=== PATIENT | female | born 1985 | race Caucasian/White ===

== ENCOUNTER → 2017-04-02 | Outpatient (CLI) | payer OTHER | END | disposition home or self-care (01) | LOC: RADMRIMAIN 18:44 | PROVIDERS: ATTEND Family Medicine | DX: Z53.9 Procedure and treatment not carried out, unspecified reason (principal) ==

== ENCOUNTER → 2017-07-01 | Outpatient (CLI) | payer OTHER ==
[2017-07-01 09:56] LABS: Non-African American GFR(MDRD) >60 (>60 ml/min/1.73 sqM)
== END | disposition home or self-care (01) ==
LOC: LABWHC1 09:15
PROVIDERS: ATTEND Family Medicine
DX: R51 Headache (principal)
CPT/HCPCS: 36415; 82565

== ENCOUNTER → 2017-07-03 | Outpatient (CLI) | payer OTHER | END | disposition home or self-care (01) | LOC: RADMRIMAIN 19:47 | PROVIDERS: ATTEND Family Medicine | DX: Z53.9 Procedure and treatment not carried out, unspecified reason (principal) ==

== ENCOUNTER → 2017-09-03 | Outpatient (CLI) | payer OTHER ==
[2017-09-03 18:23] LABS: T4, Free (Free Thyroxine) 0.8 ng/dL (0.78-2.19)
--- NOTE | 2017-09-03 20:00 | US ---
EXAMINATION TYPE: US transvaginal DATE OF EXAM: 09/03/2017 COMPARISON: NONE CLINICAL HISTORY: Pelvic Pain R10.2, Menorrhagia N92.1. Irregular menses, pelvic pain, 2 c-sections TECHNIQUE: Transvaginal (TV) Date of LMP: 08/27/17 EXAM MEASUREMENTS: Uterus: 9.0 x 4.6 x 5.5 cm Endometrial Stripe: 0.8 cm Right Ovary: 3.1 x 2.6 x 1.9 cm Left Ovary: 4.0 x 3.2 x 3.5 cm 1. Uterus: Anteverted Heterogeneous in appearance. Nabothian cysts noted. Hypoechoic area anterior body, possibly indenting endometrium = 1.0 x 0.8 x 0.8cm 2. Endometrium: appears wnl 3. Right Ovary: follicles noted 4. Left Ovary: cystic area left ovary = 3.3 x 2.6 x 2.8cm 5. Bilateral Adnexa: wnl 6. Posterior cul-de-sac: wnl IMPRESSION: There is a dominant 3.3 x 2.6 cm left ovarian cyst. No adnexal solid mass or free fluid.
== END | disposition home or self-care (01) ==
LOC: RADUSWWP 16:27
PROVIDERS: ATTEND Obstetrics & Gynecology
DX: N83.202 Unspecified ovarian cyst, left side (principal)
CPT/HCPCS: 36415; 76830; 84439; 84443

== ENCOUNTER → 2017-12-04 | Outpatient (CLI) | payer OTHER ==
--- NOTE | 2017-12-05 22:45 | MR ---
EXAMINATION TYPE: MR brain wo con DATE OF EXAM: 12/04/2017 COMPARISON: Prior MRI brain May 08, 2015. HISTORY: Follow up for headaches and arachnoid cyst, per patient and order. TECHNIQUE: Multiplanar, multisequence imaging of the brain and brainstem is performed without IV cont rast. FINDINGS: Diffusion weighted images demonstrate no evidence of a recent infarct or other diffusion abnormality. There is no extraaxial fluid collection or significant white matter signal abnormality. The ventricu lar system and cisternal spaces are normal in size and appearance. The brain volume is age appropria te. There is persistent fluid collection in the posterior aspect of posterior fossa causing mass effe ct on posterior aspect of cerebellum could reflect arachnoid cyst on axial image 11 unchanged from pr ior study. Midline structures demonstrate normal morphology. The craniocervical junction appears within normal limits. Normal vascular flow voids are present. The visualized sinuses are clear and the globes are i ntact. IMPRESSION: Stable probable posterior fossa arachnoid cyst. No new suspicious findings identified.
== END | disposition home or self-care (01) ==
LOC: RADMRIMAIN 19:53
PROVIDERS: ATTEND Family Medicine
DX: R51 Headache (principal)
CPT/HCPCS: 70551

== ENCOUNTER → 2018-06-07 | Outpatient (CLI) | payer OTHER ==
--- NOTE | 2018-06-07 15:25 | US ---
EXAMINATION TYPE: US pelvic complete DATE OF EXAM: 06/07/2018 COMPARISON: US CLINICAL HISTORY: N92.0 menorrhagia x 1 year; ; uterine fibroid TECHNIQUE: . Transabdominal sonographic images of the pelvis were acquired. Date of LMP: 05/31/2018 EXAM MEASUREMENTS: Uterus: 9.2 x 5.5 x 3.6 cm Endometrial Stripe: 0.8 cm Right Ovary: 3.2 x 2.1 x 2.3 cm Left Ovary: 3.0 x 2.9 x 2.0 cm 1. Uterus: Anteverted; mid oval, hypoechoic uterine fibroid seen at myometrial and endometrial borde r = 1.2 x 1.4 x 1.5cm 2. Endometrium: thickness is wnl for Day 22 LMP 3. Right Ovary: small follicles seen 4. Left Ovary: small follicles seen with largest size = 0.9 x 0.7 x 0.5cm Color flow imaging was demonstrated in bilateral ovary. 5. Bilateral Adnexa: wnl 6. Posterior cul-de-sac: wnl IMPRESSION: 1. Leiomyomatous change noted. 2. Small ovarian follicles as noted above.
--- NOTE | 2018-06-08 08:31 | USB ---
Reason for exam: clinical finding. Indicated problem(s): lump or thickening in the right breast. Physical Findings: Nurse Summary: Patient complains of right breast lump x 1 month (nurse marissa). US Breast RT Right complete breast ultrasound includes all four quadrants, the retroareolar region and axilla. Finding demonstrates no cystic or solid lesion seen. These results were verbally communicated with the patient and result sheet given to the patient on 06/07/18. ASSESSMENT: Negative, BI-RAD 1 RECOMMENDATION: Routine screening mammogram of both breasts at age 39. Manage patient on a clinical basis.
== END | disposition home or self-care (01) ==
LOC: RADUSWWP 14:07
PROVIDERS: ATTEND Obstetrics & Gynecology
DX: D25.9 Leiomyoma of uterus, unspecified (principal); N63.10 Unspecified lump in the right breast, unspecified quadrant
CPT/HCPCS: 76856

== ENCOUNTER 2018-08-10 22:00 | Emergency (ER) | payer OTHER ==
--- NOTE | 2018-08-10 23:06 | ED ---
General Adult HPI - General Chief complaint: Shortness of Breath Stated complaint: Fever/sob/chest pain Time Seen by Provider: 08/10/18 22:22 Source: patient, RN notes reviewed Mode of arrival: ambulatory Limitations: no limitations - History of Present Illness Initial comments: Patient is a pleasant 33-year-old female presenting to the emergency department with concerns for cough and left-sided chest discomfort. Symptoms have been present for 4 days. Patient did go to [facility] and had x-ray done. Patient states this was reported as normal and they told her was anxiety. Since that time patient has been coughing. Cough is dry nonproductive. Patient has been having some fevers. Patient did take Tylenol and Motrin prior to arrival today. Patient states her significant other has been diagnosed with pneumonia and has similar symptoms. - Related Data Home Medications Medication Instructions Recorded Confirmed ALPRAZolam [Xanax] 0.5 mg PO Q8HR 12/14/15 12/14/15 Losartan [Cozaar] 25 mg PO DAILY 12/14/15 12/14/15 PARoxetine [Paxil] 20 mg PO DAILY 12/14/15 12/14/15 Previous Rx's Medication Instructions Recorded HYDROcodone/APAP 5-325MG [[place] 1 tab PO Q6HR PRN #10 tab 12/14/15 5-325] Ibuprofen [Motrin] 800 mg PO Q8HR PRN #20 tab 12/14/15 Penicillin V Potassium [Pen Vee K] 500 mg PO QID #40 tab 12/14/15 Azithromycin [Zithromax Z-pack] 250 mg PO DIRECTED #6 tab 08/11/18 Allergies Allergy/AdvReac Type Severity Reaction Status Date / Time latex Allergy Rash/Hives Verified 08/10/18 22:06 sulfamethoxazole Allergy Nausea & Verified 08/10/18 22:06 [From ] Vomiting & Diarrhea trimethoprim [From ] Allergy Nausea & Verified 08/10/18 22:06 Vomiting & Diarrhea Review of Systems ROS Statement: Those systems with pertinent positive or pertinent negative responses have been documented in the HPI. ROS Other: All systems not noted in ROS Statement are negative. Constitutional: Reports: fever, chills Eyes: Denies: eye pain ENT: Denies: ear pain Respiratory: Reports: cough, dyspnea Cardiovascular: Reports: chest pain Endocrine: Denies: fatigue Gastrointestinal: Denies: abdominal pain Genitourinary: Denies: dysuria Musculoskeletal: Denies: back pain Skin: Denies: rash Neurological: Denies: weakness Past Medical History Past Medical History: Seizure Disorder Additional Past Medical History / Comment(s): brain cyst, hernia History of Any Multi-Drug Resistant Organisms: None Reported Past Surgical History: Section, Tonsillectomy Past Psychological History: Anxiety Smoking Status: Current every day smoker Past Alcohol Use History: None Reported Past Drug Use History: None Reported General Exam Limitations: no limitations General appearance: alert, in no apparent distress Head exam: Present: atraumatic Eye exam: Present: normal appearance, PERRL ENT exam: Present: normal oropharynx Neck exam: Present: normal inspection Respiratory exam: Present: rhonchi, chest wall tenderness Cardiovascular Exam: Present: tachycardia Expanded Peripheral pulses: 2+: Radial (R), Radial (L), Dorsalis Pedis (R), Dorsalis Pedis (L) GI/Abdominal exam: Present: soft. Absent: tenderness Extremities exam: Present: normal inspection. Absent: pedal edema, calf tenderness Back exam: Present: normal inspection Neurological exam: Present: alert Psychiatric exam: Present: normal affect, normal mood Skin exam: Present: normal color Course Vital Signs 08/10/18 08/10/18 22:03 22:16 Temperature 99.1 F Pulse Rate 155 H 112 H Respiratory 32 H 20 Rate Blood Pressure 130/73 137/79 O2 Sat by Pulse 97 96 Oximetry - Reevaluation(s) Reevaluation #1: 08/11/18 00:27 Patient reevaluated and updated. Patient requesting discharge home. Patient will likely be discharged if computed tomography scan negative for pulmonary embolism. Heart rate is 89. EKG Findings - EKG Comments: EKG Findings:: Sinus tachycardia 110. RI 128. QRS 84. QT 326. QTc 441. Normal axis. Normal QRS. No acute ST change. Medical Decision Making - Lab Data Result diagrams: 08/10/18 23:17 08/10/18 23:17 Lab Results 08/10/18 08/10/18 08/10/18 Range/Units 23:17 23:17 23:17 WBC 8.1 (3.8-10.6) k/uL RBC 4.79 (3.80-5.40) m/uL Hgb 14.8 (11.4-16.0) gm/dL Hct 43.6 (34.0-46.0) % MCV 90.9 (80.0-100.0) fL MCH 30.9 (25.0-35.0) pg MCHC 34.0 (31.0-37.0) g/dL RDW 12.3 (11.5-15.5) % Plt Count 162 (150-450) k/uL Neutrophils % 84 % Lymphocytes % 8 % Monocytes % 5 % Eosinophils % 1 % Basophils % 0 % Neutrophils # 6.8 (1.3-7.7) k/uL Lymphocytes # 0.7 L (1.0-4.8) k/uL Monocytes # 0.4 (0-1.0) k/uL Eosinophils # 0.1 (0-0.7) k/uL Basophils # 0.0 (0-0.2) k/uL PT 10.7 (9.0-12.0) sec INR 1.0 (<1.2) APTT 27.3 (22.0-30.0) sec D-Dimer 0.95 H (<0.60) mg/L FEU Sodium 139 (137-145) mmol/L Potassium 3.7 (3.5-5.1) mmol/L Chloride 109 H (98-107) mmol/L Carbon Dioxide 21 L (22-30) mmol/L Anion Gap 9 mmol/L BUN 11 (7-17) mg/dL Creatinine 0.63 (0.52-1.04) mg/dL Est GFR (CKD-EPI)AfAm >90 (>60 ml/min/1.73 sqM) Est GFR (CKD-EPI)NonAf >90 (>60 ml/min/1.73 sqM) Glucose 114 H (74-99) mg/dL Plasma Lactic Acid Agustin (0.7-2.0) mmol/L Calcium 9.0 (8.4-10.2) mg/dL Total Bilirubin 1.0 (0.2-1.3) mg/dL AST 108 H (14-36) U/L ALT 97 H (9-52) U/L Alkaline Phosphatase 97 (38-126) U/L Total Creatine Kinase (30-135) U/L CK-MB (CK-2) (0.0-2.4) ng/mL CK-MB (CK-2) Rel Index Troponin I (0.000-0.034) ng/mL Total Protein 6.9 (6.3-8.2) g/dL Albumin 4.0 (3.5-5.0) g/dL Urine Color Urine Appearance (Clear) Urine pH (5.0-8.0) Ur Specific [place] (1.001-1.035) Urine Protein (Negative) Urine Glucose (UA) (Negative) Urine Ketones (Negative) Urine Blood (Negative) Urine Nitrite (Negative) Urine Bilirubin (Negative) Urine Urobilinogen (<2.0) mg/dL Ur Leukocyte Esterase (Negative) Urine RBC (0-5) /hpf Urine WBC (0-5) /hpf Ur Squamous Epith Cells (0-4) /hpf Calcium Oxalate Crystal (None) /hpf Amorphous Sediment (None) /hpf Urine Bacteria (None) /hpf Hyaline Casts (0-2) /lpf Urine Mucus (None) /hpf Urine Yeast (Budding) (None) /hpf 08/10/18 08/10/18 08/10/18 Range/Units 23:17 23:17 23:17 WBC (3.8-10.6) k/uL RBC (3.80-5.40) m/uL Hgb (11.4-16.0) gm/dL Hct (34.0-46.0) % MCV (80.0-100.0) fL MCH (25.0-35.0) pg MCHC (31.0-37.0) g/dL RDW (11.5-15.5) % Plt Count (150-450) k/uL Neutrophils % % Lymphocytes % % Monocytes % % Eosinophils % % Basophils % % Neutrophils # (1.3-7.7) k/uL Lymphocytes # (1.0-4.8) k/uL Monocytes # (0-1.0) k/uL Eosinophils # (0-0.7) k/uL Basophils # (0-0.2) k/uL PT (9.0-12.0) sec INR (<1.2) APTT (22.0-30.0) sec D-Dimer (<0.60) mg/L FEU Sodium (137-145) mmol/L Potassium (3.5-5.1) mmol/L Chloride (98-107) mmol/L Carbon Dioxide (22-30) mmol/L Anion Gap mmol/L BUN (7-17) mg/dL Creatinine (0.52-1.04) mg/dL Est GFR (CKD-EPI)AfAm (>60 ml/min/1.73 sqM) Est GFR (CKD-EPI)NonAf (>60 ml/min/1.73 sqM) Glucose (74-99) mg/dL Plasma Lactic Acid Agustin 1.1 (0.7-2.0) mmol/L Calcium (8.4-10.2) mg/dL Total Bilirubin (0.2-1.3) mg/dL AST (14-36) U/L ALT (9-52) U/L Alkaline Phosphatase (38-126) U/L Total Creatine Kinase 155 H (30-135) U/L CK-MB (CK-2) 0.9 (0.0-2.4) ng/mL CK-MB (CK-2) Rel Index 0.6 Troponin I <0.012 (0.000-0.034) ng/mL Total Protein (6.3-8.2) g/dL Albumin (3.5-5.0) g/dL Urine Color Dark Brown Urine Appearance Cloudy H (Clear) Urine pH 6.5 (5.0-8.0) Ur Specific [place] 1.033 (1.001-1.035) Urine Protein 2+ H (Negative) Urine Glucose (UA) Trace H (Negative) Urine Ketones Negative (Negative) Urine Blood Large H (Negative) Urine Nitrite Negative (Negative) Urine Bilirubin 1+ H (Negative) Urine Urobilinogen >12.0 (<2.0) mg/dL Ur Leukocyte Esterase Trace H (Negative) Urine RBC 97 H (0-5) /hpf Urine WBC 5 (0-5) /hpf Ur Squamous Epith Cells 20 H (0-4) /hpf Calcium Oxalate Crystal Few H (None) /hpf Amorphous Sediment Rare H (None) /hpf Urine Bacteria Rare H (None) /hpf Hyaline Casts 1 (0-2) /lpf Urine Mucus Few H (None) /hpf Urine Yeast (Budding) Rare H (None) /hpf - Radiology Data Radiology results: image reviewed (Chest x-ray shows left lung consolidation.) Disposition Clinical Impression: Pneumonia Disposition: HOME SELF-CARE Condition: Stable Instructions: Pneumonia (ED) Additional Instructions: Please follow-up with primary care physician in the next day or 2 for recheck. Return for uncontrolled fever, difficulty breathing, increased pain, change or worsening symptoms or other concerns. Prescriptions: Azithromycin [Zithromax Z-pack] 250 mg PO DIRECTED #6 tab Is patient prescribed a controlled substance at d/c from ED?: No Referrals: Héctor Darnell MD [Primary Care Provider] - 1-2 days
[2018-08-10 23:47] LABS: Basophils % (A) 0 %; Eosinophils # (A) 0.1 k/uL (0-0.7); Eosinophils % (A) 1 %; HCT 43.6 % (34.0-46.0); HGB 14.8 gm/dL (11.4-16.0); Lymphocytes # (A) 0.7 k/uL (1.0-4.8); Lymphocytes % (A) 8 %; MCH 30.9 pg (25.0-35.0); MCV 90.9 fL (80.0-100.0); Mean Platelet Volume 7.1; Monocytes # (A) 0.4 k/uL (0-1.0); Monocytes % (A) 5 %; Neutrophils # (A) 6.8 k/uL (1.3-7.7); Neutrophils % (A) 84 %; Platelet Count 162 k/uL (150-450); RBC 4.79 m/uL (3.80-5.40); RDW 12.3 % (11.5-15.5); WBC 8.1 k/uL (3.8-10.6)
[2018-08-10] MEDS: SODIUM CHLORIDE 0.9% 500 ML 500 ML IV SCH (23:50)
[2018-08-10 23:57] LABS: Partial Thromboplastin Time 27.3 sec (22.0-30.0); Prothrombin Time 10.7 sec (9.0-12.0)
[2018-08-10 23:58] LABS: ALT 97 U/L (9-52); AST 108 U/L (14-36); Alkaline Phosphatase 97 U/L (38-126); Anion Gap 9 mmol/L; Blood Urea Nitrogen 11 mg/dL (7-17); Carbon Dioxide 21 mmol/L (22-30); Chloride 109 mmol/L (98-107); Glucose 114 mg/dL (74-99); Potassium 3.7 mmol/L (3.5-5.1); Sodium 139 mmol/L (137-145); Total Protein 6.9 g/dL (6.3-8.2)
[2018-08-11 00:02] LABS: Creatine Kinase 155 U/L (30-135)
[2018-08-11 00:03] LABS: Amorphous Sediment,Urine Rare /hpf; Appearance,Urine Cloudy (Clear); Bacteria,Urine Rare /hpf; Bilirubin,Urine 1+ (Negative); Blood,Urine Large (Negative); Budding Yeast,Urine Rare /hpf; Calcium Oxalate Crystals,Urine Few /hpf; Color,Urine Dark Brown; Glucose,Urine (UA) Trace (Negative); Hyaline Casts,Urine 1 /lpf (0-2); Ketones,Urine Negative (Negative); Leukocyte Esterase,Urine Trace (Negative); Mucus,Urine Few /hpf; Nitrite,Urine Negative (Negative); PH, Urine 6.5 (5.0-8.0); Protein,Urine 2+ (Negative); RBC,Urine 97 /hpf (0-5); Specific Gravity,Urine 1.033 (1.001-1.035); Squamous Epithelial Cell,Urine 20 /hpf (0-4); Urobilinogen,Urine >12.0 mg/dL (<2.0); WBC,Urine 5 /hpf (0-5)
--- NOTE | 2018-08-11 00:04 | XR ---
EXAMINATION TYPE: XR chest 2V DATE OF EXAM: 08/10/2018 COMPARISON: September 17, 2011 HISTORY: Fever TECHNIQUE: Frontal and lateral views of the chest are obtained. FINDINGS: Heart and mediastinum are normal. There is 8 cm patch of airspace consolidation in the per iphery of the left midlung. The other lung guajardo are clear. This is probably in the left upper lobe. Costophrenic angles are clear. Bony thorax is intact. IMPRESSION: New pneumonic consolidation in the left lung compared to last exam. Normal heart.
[2018-08-11 00:15] LABS: Creatine Kinase MB 0.9 ng/mL (0.0-2.4); Troponin I <0.012 ng/mL (0.000-0.034)
[2018-08-11 00:16] LABS: D-Dimer 0.95 mg/L FEU (<0.60)
[2018-08-11] MEDS ORDERED: cefTRIAXone 2,000 MG in SODIUM CHLORIDE 0.9% 100 ML IVPB ONE (00:30)
--- NOTE | 2018-08-11 01:40 | CT ---
EXAMINATION TYPE: CT angio chest DATE OF EXAM: 08/11/2018 12:50 AM COMPARISON: None HISTORY: cough, r/o PE CT DLP: 656.1 mGycm Automated exposure control for dose reduction was used. CONTRAST: CTA scan of the thorax is performed with IV Contrast, patient injected with 70 mL of Isovue 370, pulm onary embolism protocol. There are 3-D post processed images.. FINDINGS: There is some patchy airspace consolidation in the large area of the anterior left upper lobe and als o extending into the lingula left upper lobe. The other lung guajardo are fairly clear. There is no ple ural effusion. There is some atelectasis in the lingula left upper lobe. Heart size is normal. There is no pericardial effusion. There are a few paratracheal and mediastinal and bronchial lymph nodes th at measure up to 1.5 cm. This is more on the left side. There is normal contrast opacification of the pulmonary arteries. I see no filling defect. Thoracic a hector is intact without evidence of aneurysm or dissection. The bony thorax is intact. IMPRESSION: NO EVIDENCE OF PULMONARY EMBOLISM. LEFT UPPER LOBE AIRSPACE PNEUMONIA. MILD MEDIASTINAL AND BRONCHIAL ADENOPATHY PROBABLY FROM INFLAMMATORY PROCESS.
[2018-08-11 02:11] VITALS: BP 133/80; PULSE 90; RESP 16; TEMP 99
== END 2018-08-11 02:11 | disposition home or self-care (01) ==
LOC: EC 22:00
DX: J18.9 Pneumonia, unspecified organism (principal); F41.9 Anxiety disorder, unspecified; F17.200 Nicotine dependence, unspecified, uncomplicated; Z79.899 Other long term (current) drug therapy; Z91.040 Latex allergy status; Z88.1 Allergy status to other antibiotic agents
CPT/HCPCS: 36415; 93005; 85379; 80053; 82550; 82553; 83605; 84484; 85025; 85610; 85730; 81001; 87040; 87086; 71046; 71275; 99285; 96365; J0696; Q9967

== ENCOUNTER → 2019-05-17 | Outpatient (CLI) | payer OTHER | END | disposition home or self-care (01) | LOC: LABPAT 13:18 | PROVIDERS: ATTEND Obstetrics & Gynecology | DX: Z53.9 Procedure and treatment not carried out, unspecified reason (principal) ==

== ENCOUNTER 2019-05-23 05:52 | Observation (INO) | payer OTHER ==
[2019-05-17 14:48] LABS: African American GFR (CKD) >90 (>60 ml/min/1.73 sqM); Anion Gap 9 mmol/L; Blood Urea Nitrogen 13 mg/dL (7-17); Calcium 9.1 mg/dL (8.4-10.2); Carbon Dioxide 23 mmol/L (22-30); Chloride 106 mmol/L (98-107); Glucose 105 mg/dL (74-99); Sodium 138 mmol/L (137-145)
[2019-05-17 15:00] LABS: Basophils % (A) 0 %; Eosinophils # (A) 0.1 k/uL (0-0.7); Eosinophils % (A) 2 %; HCT 44.5 % (34.0-46.0); HGB 15.8 gm/dL (11.4-16.0); Lymphocytes # (A) 2.3 k/uL (1.0-4.8); Lymphocytes % (A) 26 %; MCH 32.2 pg (25.0-35.0); MCHC 35.5 g/dL (31.0-37.0); MCV 90.6 fL (80.0-100.0); Mean Platelet Volume 6.5; Monocytes # (A) 0.3 k/uL (0-1.0); Monocytes % (A) 4 %; Neutrophils # (A) 5.9 k/uL (1.3-7.7); Neutrophils % (A) 67 %; Platelet Count 213 k/uL (150-450); RBC 4.91 m/uL (3.80-5.40); RDW 12.5 % (11.5-15.5); WBC 8.8 k/uL (3.8-10.6)
[2019-05-17 15:03] LABS: Potassium 4.4 mmol/L (3.5-5.1)
[~2019-05-23 05:52] MED LIST: DEXAMETHASONE SOD PHOSPHATE 10 MG/ML 1 ML VIAL IV ONE; MIDAZOLAM 2 MG/2 ML VIAL IV PRN; fentaNYL (PF) 50 MCG/ML 2 ML AMP IV PRN
[2019-05-23] MEDS: LIDOCAINE 1% 20 ML VIAL (10MG/ML) FOR IV START INTRADERMA PRN ×2 (06:26→06:28)
[2019-05-23] MEDS: LACTATED RINGERS 1,000 ML IV SCH ×2 (06:27→18:56)
[2019-05-23] MEDS ORDERED: DEXAMETHASONE SOD PHOSPHATE 4 MG/ML 1 ML VIAL IVP ONE (06:32)
[2019-05-23] MEDS ORDERED: ONDANSETRON 4 MG/2 ML VIAL IVP ONE (06:33)
[2019-05-23] MEDS ORDERED: MIDAZOLAM PF (FBP) 2 MG/2 ML VIAL IVP ONE (06:42)
--- NOTE | 2019-05-23 06:55 | P.HPOB ---
History of Present Illness H&P Date: 05/23/19 Chief Complaint: Menorrhagia 33 year old presents for total laparoscopic hysterectomy with da hazel and diagnostic cystoscopy. Review of Systems All systems: negative Constitutional: Denies chills, Denies fever Eyes: denies blurred vision, denies pain Ears, nose, mouth and throat: Denies headache, Denies sore throat Cardiovascular: Denies chest pain, Denies shortness of breath Respiratory: Denies cough Gastrointestinal: Denies abdominal pain, Denies diarrhea, Denies nausea, Denies vomiting Genitourinary: Denies dysuria, Denies hematuria Musculoskeletal: Denies myalgias Integumentary: Denies pruritus, Denies rash Neurological: Denies numbness, Denies weakness Psychiatric: Denies anxiety, Denies depression Endocrine: Denies fatigue, Denies weight change Past Medical History Past Medical History: GERD/Reflux, Hyperlipidemia, Hypertension, Seizure Disorder Additional Past Medical History / Comment(s): brain cyst, hernia. LAST SEIZURE 2016-NO LONGER ON SEIZURE MEDS History of Any Multi-Drug Resistant Organisms: None Reported Past Surgical History: Section, Tonsillectomy Additional Past Surgical History / Comment(s): C-SECT-X 2 Past Anesthesia/Blood Transfusion Reactions: No Reported Reaction Smoking Status: Current every day smoker - Past Family History Mother Family Medical History: No Reported History Medications and Allergies Home Medications Medication Instructions Recorded Confirmed Type ALPRAZolam [Xanax] 0.5 mg PO Q8HR PRN 12/14/15 05/17/19 History Losartan [Cozaar] 25 mg PO DAILY 12/14/15 05/17/19 History Atorvastatin [Lipitor] 20 mg PO HS 05/17/19 05/23/19 History Hydrochlorothiazide 12.5 mg PO DAILY 05/17/19 05/23/19 History Ranitidine HCl 300 mg PO HS 05/17/19 05/23/19 History Sertraline [Zoloft] 100 mg PO DAILY 05/17/19 05/23/19 History Allergies Allergy/AdvReac Type Severity Reaction Status Date / Time adhesive tape Allergy Rash/Hives Verified 05/17/19 11:36 latex Allergy Rash/Hives Verified 05/17/19 11:36 sulfamethoxazole Allergy Nausea & Verified 05/17/19 11:36 [From ] Vomiting & Diarrhea trimethoprim [From ] Allergy Nausea & Verified 05/17/19 11:36 Vomiting & Diarrhea Exam Osteopathic Statement: *. No significant issues noted on an osteopathic structural exam other than those noted in the History and Physical/Consult. Vital Signs Temp Pulse Resp BP Pulse Ox 05/23/19 06:11 97.1 F L 108 H 16 140/67 97 Intake and Output 05/22/19 05/22/19 05/23/19 14:59 22:59 06:59 Other: Weight 112.491 kg HEart: RRR Lungs: CTAB Abdomen: soft, nontender Extremeties: neg juliana's Results Result Diagrams: 05/17/19 14:20 05/17/19 14:20 Assessment and Plan (1) Menorrhagia with regular cycle Current Visit: Yes Status: Acute Code(s): N92.0 - EXCESSIVE AND FREQUENT MENSTRUATION WITH REGULAR CYCLE SNOMED Code(s): 109396499 Plan: 1. total laparoscopic hysterectomy using da vinic and diagnostic cystoscopy.
[2019-05-23] MEDS ORDERED: PHENYLEPHRINE-0.9% NACL SYG 1 MG/10 ML SYRINGE ONE (07:09)
[2019-05-23] MEDS ORDERED: HYDROmorphone (PF) 1 MG/ML ONE (07:09)
[2019-05-23] MEDS ORDERED: ROCURONIUM BROMIDE 10 MG/ML 10 ML VIAL IV ONE (07:09)
[2019-05-23] MEDS ORDERED: KETOROLAC 30 MG/ML 1 ML VIAL ONE (07:09)
[2019-05-23] MEDS ORDERED: fentaNYL (PF) 50 MCG/ML 2 ML AMP ONE (07:09)
[2019-05-23] MEDS ORDERED: MIDAZOLAM 2 MG/2 ML VIAL ONE (07:09)
[2019-05-23] MEDS ORDERED: GLYCOPYRROLATE 0.2 MG/ML 2 ML VIAL ONE (07:09)
[2019-05-23] MEDS ORDERED: LIDOCAINE 1% INJ 10MG/ML (20 ML MDV) ONE (07:09)
[2019-05-23] MEDS ORDERED: NEOSTIGMINE 1 MG/ML 10 ML VIAL ONE (07:09)
[2019-05-23] MEDS ORDERED: PROPOFOL 10 MG/ML 20 ML VIAL IV ONE (07:09)
[2019-05-23] MEDS ORDERED: SUCCINYLCHOLINE CHLORIDE 100 MG/5 ML SYR IV ONE (07:09)
[2019-05-23] MEDS ORDERED: BUPIVACAINE (PF) 0.25% 30 ML VIAL SQ ONE (07:53)
[2019-05-23] MEDS ORDERED: ALPRAZolam 0.5 MG TAB PO PRN (09:08)
[2019-05-23] MEDS ORDERED: HYDROmorphone 1 MG/ML 1 ML SYRINGE IVP ONE ×2 (09:10→09:43)
--- NOTE | 2019-05-23 09:10 | P.OP ---
Date of Procedure: 05/23/19 Preoperative Diagnosis: 1. Menorrhagia Postoperative Diagnosis: 1. Menorrhagia Procedure(s) Performed: Total laparoscopic hysterectomy using da Trinh with diagnostic cystoscopy Anesthesia: TERRY Surgeon: Esperanza Hobbs Line Installer Trolley #1: Jewel Lindquist Estimated Blood Loss (ml): 20 IV fluids (ml): 1,000 Urine output (ml): 100 Pathology: other (Uterus and cervix) Condition: stable Disposition: PACU Description of Procedure: Patient taken the operating room where general anesthesia was obtained without difficulty. She is prepped and draped in normal sterile fashion dorsal lithotomy position, legs placed in the Smooth stirrups. Weighted speculum placed in the vagina and the anterior lip the cervix was grasped with single-tooth tenaculum. The uterus sounded to 6 cm and the cervix diameter was 2.5 cm. The appropriate manipulator tip and ring were placed on the Tamanna manipulator. The Tamanna manipulator was then placed in the uterus. Hernandez catheter was also placed. Attention was then turned to the abdomen and gloves were changed. A 5 mm supraumbilical incision was made the scalpel and a 5 mm optical trocar was placed under direct visualization. 10 cm to the right of this and 2 cm down a 5 mm incision was made and 8 mm da Trinh port was placed under direct visualization. Same measurements on the opposite side of the patient's abdomen, the 5 mm incision was made and 8 mm da Trinh port was placed under direct visualization. In the left upper quadrant a 10 mm incision was made and a 10 mm optical trocar was placed under direct visualization. The 5 mm optical trocar was then replaced with the 8 mm da Trinh camera port. The robot was docked on patient's right side. The camera was introduced and then the monopolar curved scissor and [place] bipolar placed under direct visualization. I broke scrub and went to the physician console. The left utero-ovarian ligament was cauterized with the [place] bipolar and cut with monopolar curved scissors. The left round ligament was cauterized with the [place] bipolar and cut with monopolar curved scissors. The posterior leaf of the broad ligament was taken down using the monopolar curved scissors. Anterior leaf of the broad ligament was then taken down using the monopolar curved scissors. The uterine artery was cauterized with the [place] bipolar and cut with monopolar curved scissors. The bladder flap was then started using the monopolar curved scissors. Attention was then turned to the right side of the patient's anatomy and the right utero-ovarian ligament was cauterized with the [place] bipolar and cut with monopolar curved scissors. The right round ligament was cauterized with the [place] bipolar and cut with monopolar curved scissors. Posterior leaf of the broad ligament was taken down using the monopolar curved scissors and the anterior leaf was taken down using the monopolar curved scissors. The uterine artery was cauterized the [place] bipolar cut with monopolar curved scissors. The bladder flap was then finished on this side. Anterior colpotomy was made using the monopolar curved scissors. The rest of the uterus was from the vaginal cuff by following the ring around with the monopolar curved scissors through the uterosacral ligaments back to the anterior portion. Once the uterus and cervix were amputated they were pulled through the vaginal cuff. Hemostasis was assured. The instruments were changed for the Cardier forcep and the ace suture cut. The vaginal cuff was then closed using O stratafix barbed suture in a running fashion. Hemostasis was again assured and the pelvis was irrigated. All instruments were removed from the abdomen and the robot was undocked. I scrubbed back in to perform a cystoscopy. There were jets from both ureteral orifices. The abdominal incisions were closed with 4-0 Vicryl in a subcuticular fashion. Patient tolerated the procedure well, sponge and instrument counts correct 2 and she was taken to recovery room in stable condition condition
[2019-05-23] MEDS ORDERED: SIMETHICONE 80 MG CHEWABLE PO PRN (09:24)
[2019-05-23] MEDS ORDERED: IBUPROFEN 600 MG TAB PO PRN (09:24)
[2019-05-23] MEDS ORDERED: ONDANSETRON 4 MG/2 ML VIAL IVP PRN (09:24)
[2019-05-23] MEDS: HYDROcodone/APAP 7.5-325MG 1 EACH TAB PO PRN ×2 (12:38→18:52)
[2019-05-23] MEDS ORDERED: SIMETHICONE 40 MG/0.6 ML DROPS 2,000 MG/30 ML BOTTLE PO PRN (12:53)
[2019-05-23] MEDS: KETOROLAC 30 MG/ML 1 ML VIAL IVP PRN ×2 (14:16→22:43)
[2019-05-23] MEDS: METOCLOPRAMIDE 5 MG TAB PO SCH ×2 (14:17→18:52)
[2019-05-23] MEDS: SENNOSIDES-DOCUSATE SODIUM 1 EACH TAB PO SCH (20:55)
[2019-05-23] MEDS ORDERED: FAMOTIDINE 20 MG TAB PO SCH (21:00)
[2019-05-23] MEDS ORDERED: ATORVASTATIN 20 MG TAB PO SCH (21:00)
[2019-05-23] MEDS ORDERED: SERTRALINE 100 MG TAB PO SCH (21:00)
[2019-05-23] MEDS ORDERED: SODIUM CHLORIDE 0.9% 500 ML 500 ML IV ONE (22:21)
[2019-05-23 23:30] LABS: HCT 37.8 % (34.0-46.0); MCH 32.6 pg (25.0-35.0); MCHC 33.9 g/dL (31.0-37.0); Mean Platelet Volume 6.6; Platelet Count 185 k/uL (150-450); RBC 3.94 m/uL (3.80-5.40); RDW 12.3 % (11.5-15.5); WBC 12.9 k/uL (3.8-10.6)
[2019-05-23 23:43] LABS: HGB 12.8 gm/dL (11.4-16.0); MCV 95.9 fL (80.0-100.0)
[2019-05-24 00:13] VITALS: TEMP 98.6
[2019-05-24] MEDS: HYDROcodone/APAP 7.5-325MG 1 EACH TAB PO PRN (03:48)
[2019-05-24] MEDS: LACTATED RINGERS 1,000 ML IV SCH (03:52)
[2019-05-24 06:52] VITALS: BMI 35.4
[2019-05-24] MEDS: METOCLOPRAMIDE 5 MG TAB PO SCH (06:53)
[2019-05-24] MEDS: KETOROLAC 30 MG/ML 1 ML VIAL IVP PRN (06:57)
--- NOTE | 2019-05-24 07:36 | P.DS ---
Providers Date of admission: 05/23/19 23:14 Expected date of discharge: 05/24/19 Attending physician: Esperanza Hobbs Primary care physician: Héctor Darnell - Discharge Diagnosis(es) (1) Menorrhagia with regular cycle Current Visit: Yes Status: Resolved (2) History of robot-assisted laparoscopic hysterectomy Current Visit: Yes Status: Acute Hospital Course: Pt presented for TLH with da hazel. She underwent this procedure without complication. Postoperatively she did have some low BPs and dizziness but never tachycardic. Hgb is stable at 12. IV fluid bolus improved those symptoms. She is now ambulating and voiding with minimal difficulty. She is passing flatus and tolerating a reg diet. Pain is controlled and incisions are intact. She will be discharged home POD #1 in stable condition to follow up with me in 3 weeks. Plan - Discharge Summary Discharge Rx Participant: Yes New Discharge Prescriptions: New Ibuprofen [Motrin] 600 mg PO Q6HR PRN #30 tab PRN Reason: Mild Discomfort HYDROcodone/APAP 7.5-325MG [[place] 7.5-325] 1 each PO Q6H PRN #12 tab PRN Reason: SEVERE Pain No Action Losartan [Cozaar] 25 mg PO DAILY ALPRAZolam [Xanax] 0.5 mg PO Q8HR PRN PRN Reason: Anxiety Ranitidine HCl 300 mg PO HS Atorvastatin [Lipitor] 20 mg PO HS Sertraline [Zoloft] 100 mg PO HS Hydrochlorothiazide 12.5 mg PO DAILY Discharge Medication List ALPRAZolam [Xanax] 0.5 mg PO Q8HR PRN 12/14/15 [History] Losartan [Cozaar] 25 mg PO DAILY 12/14/15 [History] Atorvastatin [Lipitor] 20 mg PO HS 05/17/19 [History] Hydrochlorothiazide 12.5 mg PO DAILY 05/17/19 [History] Ranitidine HCl 300 mg PO HS 05/17/19 [History] Sertraline [Zoloft] 100 mg PO HS 05/17/19 [History] HYDROcodone/APAP 7.5-325MG [[place] 7.5-325] 1 each PO Q6H PRN #12 tab 05/24/19 [Rx] Ibuprofen [Motrin] 600 mg PO Q6HR PRN #30 tab 05/24/19 [Rx] Follow up Appointment(s)/Referral(s): Esperanza Hobbs DO [Doctor of Osteopathic Medicine] - 3 Weeks Discharge Disposition: HOME SELF-CARE
[2019-05-24 08:42] LABS: Basophils % (A) 0 %; Eosinophils # (A) 0.1 k/uL (0-0.7); Eosinophils % (A) 1 %; HCT 41.8 % (34.0-46.0); HGB 13.3 gm/dL (11.4-16.0); Lymphocytes # (A) 2.4 k/uL (1.0-4.8); Lymphocytes % (A) 21 %; MCH 31.8 pg (25.0-35.0); MCHC 31.9 g/dL (31.0-37.0); MCV 99.5 fL (80.0-100.0); Mean Platelet Volume 7.5; Monocytes # (A) 0.4 k/uL (0-1.0); Monocytes % (A) 3 %; Neutrophils # (A) 8.3 k/uL (1.3-7.7); Neutrophils % (A) 73 %; Platelet Count 201 k/uL (150-450); RDW 12.4 % (11.5-15.5); WBC 11.4 k/uL (3.8-10.6)
[2019-05-24] MEDS ORDERED: NICOTINE 21MG/24HR PATCH TRANSDERM SCH (09:00)
[2019-05-24] MEDS ORDERED: HYDROCHLOROTHIAZIDE 12.5 MG CAP PO SCH (09:00)
[2019-05-24] MEDS ORDERED: SERTRALINE 100 MG TAB PO SCH (09:00)
[2019-05-24] MEDS ORDERED: LOSARTAN 25 MG TAB PO SCH (09:00)
[2019-05-24] MEDS: SENNOSIDES-DOCUSATE SODIUM 1 EACH TAB PO SCH (09:05)
[2019-05-24 09:58] VITALS: BP 99/65; PULSE 70; RESP 16
== END 2019-05-24 09:45 | disposition home or self-care (01) ==
LOC: OR 05:52 → 6PED 08:39 → OR 23:30
PROVIDERS: ADMIT Obstetrics & Gynecology; ATTEND Obstetrics & Gynecology
DX: N92.0 Excessive and frequent menstruation with regular cycle (principal); K21.9 Gastro-esophageal reflux disease without esophagitis; E78.5 Hyperlipidemia, unspecified; I10 Essential (primary) hypertension; D25.9 Leiomyoma of uterus, unspecified; Z86.69 Personal history of other diseases of the nervous system and sense organs; F17.200 Nicotine dependence, unspecified, uncomplicated; Z79.899 Other long term (current) drug therapy; Z88.2 Allergy status to sulfonamides; Z91.040 Latex allergy status; Z91.048 Other nonmedicinal substance allergy status; F39 Unspecified mood [affective] disorder
CPT/HCPCS: 58570; S2900; 36415; 80048; 81025; 85025; 85027; 86850; 86900; 86901; 88307

== ENCOUNTER → 2019-06-06 | Outpatient (CLI) | payer OTHER ==
[2019-06-06 15:28] LABS: Appearance,Urine Cloudy (Clear); Bilirubin,Urine Negative (Negative); Blood,Urine Small (Negative); Color,Urine Yellow; Glucose,Urine (UA) Negative (Negative); Ketones,Urine Negative (Negative); Leukocyte Esterase,Urine Trace (Negative); Mucus,Urine Rare /hpf; Nitrite,Urine Negative (Negative); Protein,Urine Negative (Negative); RBC,Urine 7 /hpf (0-5); Squamous Epithelial Cell,Urine 7 /hpf (0-4); Urobilinogen,Urine <2.0 mg/dL (<2.0); WBC,Urine 1 /hpf (0-5)
== END | disposition home or self-care (01) ==
LOC: LABWHC1 12:52
PROVIDERS: ATTEND Obstetrics & Gynecology
DX: N39.0 Urinary tract infection, site not specified (principal)
CPT/HCPCS: 81001; 87086

== ENCOUNTER 2019-06-26 18:23 | Emergency (ER) | payer OTHER ==
[2019-06-26 18:30] VITALS: TEMP 98
--- NOTE | 2019-06-26 18:40 | ED ---
General Adult HPI - General Chief complaint: Upper Respiratory Infection Stated complaint: Cough/sob Time Seen by Provider: 06/26/19 18:31 Source: patient Mode of arrival: ambulatory Limitations: no limitations - History of Present Illness Initial comments: Dictation was produced using [employer] dictation software. please excuse any gramm atical, word or spelling errors. Chief Complaint: 34-year-old female presents with cough, right-sided back pain and right ear pain for the last 3-4 days. History of Present Illness: Patient is a 34-year-old female she has past medical history of seizure disorder dyslipidemia and brain cyst. She states she's been having URI type symptoms for the last 4-5 days. Can also has been having chills. She's been exposed to her significant other who is also ill with similar symptoms. She states she has some right posterior back pain is worse with deep inspiration. She localizes it to the lower inferior scapular area. She's been complaining of nasal congestion. No sore throat. The ROS documented in this emergency department record has been reviewed and confirmed by me. Those systems with pertinent positive or negative responses have been documented in the HPI. All other systems are other negative and/or noncontributory. PHYSICAL EXAM: General Impression: Alert and oriented x3, not in acute distress HEENT: Normocephalic atraumatic, extra-ocular movements intact, pupils equal and reactive to light bilaterally, mucous membranes moist. Cardiovascular: Heart regular rate and rhythm, S1&S2 audible, no murmurs, rubs or gallops Chest: Lungs clear to auscultation bilaterally, no rhonchi, no wheeze, no rales, no egophony Abdomen: Bowel sounds present, abdomen soft, non-tender, non-distended, no organomegaly Musculoskeletal: Pulses present and equal in all extremities, no peripheral edema Motor: no focal deficits noted Neurological: CN II-XII grossly intact, no focal motor or sensory deficits noted Skin: Intact with no visualized rashes Psych: Normal affect and mood ED course: 34-year-old female presents with respiratory infectious symptoms. Vital signs upon arrival are within acceptable limits. Click or presentation is likely secondary to upper respiratory infection secondary to viral etiology. Chest x-rays obtained showing no acute processes. No signs of infiltrate. Patient observed emergency department no progression of symptoms. Patient prescription for Zithromax pack. She is told to hold onto it and take it in a wait and see pattern. She is told to continue taking the antibiotics in 48-72 hours if she feels like her symptoms aren't improving. No central agreeable to plan. She is told to follow-up with primary care physician upon discharge. - Related Data Home Medications Medication Instructions Recorded Confirmed ALPRAZolam [Xanax] 0.5 mg PO Q8HR PRN 12/14/15 05/23/19 Losartan [Cozaar] 25 mg PO DAILY 12/14/15 05/23/19 Atorvastatin [Lipitor] 20 mg PO HS 05/17/19 05/23/19 Hydrochlorothiazide 12.5 mg PO DAILY 05/17/19 05/23/19 Ranitidine HCl 300 mg PO HS 05/17/19 05/23/19 Sertraline [Zoloft] 100 mg PO HS 05/17/19 05/23/19 Previous Rx's Medication Instructions Recorded HYDROcodone/APAP 7.5-325MG [[place]ers 1 each PO Q6H PRN #12 tab 05/24/19 7.5-325] Ibuprofen [Motrin] 600 mg PO Q6HR PRN #30 tab 05/24/19 Azithromycin [Zithromax Z-pack] 0 mg PO DIRECTED #6 tab 06/26/19 Allergies Allergy/AdvReac Type Severity Reaction Status Date / Time adhesive tape Allergy Rash/Hives Verified 06/26/19 18:30 latex Allergy Rash/Hives Verified 06/26/19 18:30 sulfamethoxazole Allergy Nausea & Verified 06/26/19 18:30 [From ] Vomiting & Diarrhea trimethoprim [From ] Allergy Nausea & Verified 06/26/19 18:30 Vomiting & Diarrhea Review of Systems ROS Statement: Those systems with pertinent positive or pertinent negative responses have been documented in the HPI. ROS Other: All systems not noted in ROS Statement are negative. Past Medical History Past Medical History: GERD/Reflux, Hyperlipidemia, Hypertension, Seizure Disorder Additional Past Medical History / Comment(s): brain cyst, hernia. LAST SEIZURE 2016-NO LONGER ON SEIZURE MEDS History of Any Multi-Drug Resistant Organisms: None Reported Past Surgical History: Section, Tonsillectomy Additional Past Surgical History / Comment(s): C-SECT-X 2 Past Anesthesia/Blood Transfusion Reactions: No Reported Reaction Past Psychological History: Anxiety, Depression Smoking Status: Current every day smoker Past Alcohol Use History: None Reported Past Drug Use History: None Reported - Past Family History Mother Family Medical History: No Reported History General Exam Limitations: no limitations Course Vital Signs 06/26/19 18:27 Temperature 98 F Pulse Rate 88 Respiratory 16 Rate Blood Pressure 144/83 O2 Sat by Pulse 98 Oximetry Disposition Clinical Impression: Common cold Disposition: HOME SELF-CARE Condition: Good Instructions (If sedation given, give patient instructions): Upper Respiratory Infection (ED) Prescriptions: Azithromycin [Zithromax Z-pack] 0 mg PO DIRECTED #6 tab Is patient prescribed a controlled substance at d/c from ED?: No Referrals: Héctor Darnell MD [Primary Care Provider] - 1-2 days Time of Disposition: 20:14
[2019-06-26 20:24] VITALS: BP 140/78; PULSE 80; RESP 18
--- NOTE | 2019-06-26 20:38 | XR ---
EXAMINATION TYPE: XR chest 2V DATE OF EXAM: 06/26/2019 COMPARISON: 08/10/2018 INDICATION: Cough and congestion for 2 days TECHNIQUE: Frontal and lateral views of the chest are obtained. FINDINGS: The heart size is normal. The pulmonary vasculature is normal. The lungs are clear. Previous left pneumonia has resolved IMPRESSION: 1. No acute pulmonary process.
== END 2019-06-26 20:24 | disposition home or self-care (01) ==
LOC: EC 18:23
DX: J00 Acute nasopharyngitis [common cold] (principal); M54.9 Dorsalgia, unspecified; E78.5 Hyperlipidemia, unspecified; I10 Essential (primary) hypertension; F32.9 Major depressive disorder, single episode, unspecified; F41.9 Anxiety disorder, unspecified; F17.200 Nicotine dependence, unspecified, uncomplicated; Z88.2 Allergy status to sulfonamides; Z91.040 Latex allergy status; Z91.048 Other nonmedicinal substance allergy status; Z79.899 Other long term (current) drug therapy; Z90.89 Acquired absence of other organs
CPT/HCPCS: 71046; 99284

== ENCOUNTER 2020-05-27 10:17 | Emergency (ER) | payer OTHER ==
[2020-05-27 10:34] VITALS: RESP 16; TEMP 97.8
[2020-05-27] MEDS ORDERED: KETOROLAC 15 MG/ML 1 ML VIAL IM STA (10:50)
[2020-05-27] MEDS ORDERED: CYCLOBENZAPRINE 10 MG TAB PO STA (10:50)
--- NOTE | 2020-05-27 11:05 | ED ---
Neck Injury/Pain HPI - General Chief Complaint: Neck Pain/Injury Stated Complaint: shoulder pain Time Seen by Provider: 05/27/20 10:36 Mode of arrival: ambulatory Limitations: no limitations - History of Present Illness Initial Comments: Patient is a 35-year-old female presenting to the emergency department a chief complaint of neck and right shoulder pain. Patient states this has been ongoing for the past several days. 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 Patient states now she is having some pain in her neck seems to be radiating to the right shoulder and is exacerbated with any movement. States she can't fully turn her head to the right and cannot abduct right upper extremity above 90. She reports localized tenderness to palpation along the right. States she has a tingling sensation going down to her hand, as well as some pain. Patient denies any night sweats fevers or chills. States she has been very stressed lately and is always tensed up. Patient states she also uses 2 pillows to usually sleep with her head slightly propped up. She denies any headaches. - Related Data Home Medications Medication Instructions Recorded Confirmed ALPRAZolam [Xanax] 0.5 mg PO Q8HR PRN 12/14/15 05/23/19 Losartan [Cozaar] 25 mg PO DAILY 12/14/15 05/23/19 Atorvastatin [Lipitor] 20 mg PO HS 05/17/19 05/23/19 Hydrochlorothiazide 12.5 mg PO DAILY 05/17/19 05/23/19 [hydroCHLOROthiazide] Sertraline [Zoloft] 100 mg PO HS 05/17/19 05/23/19 raNITIdine HCL [Ranitidine HCl] 300 mg PO HS 05/17/19 05/23/19 Previous Rx's Medication Instructions Recorded HYDROcodone/APAP 7.5-325MG [[place]arks 1 each PO Q6H PRN #12 tab 05/24/19 7.5-325] Ibuprofen [Motrin] 600 mg PO Q6HR PRN #30 tab 05/24/19 Azithromycin [Zithromax Z-pack] 0 mg PO DIRECTED #6 tab 06/26/19 Cyclobenzaprine [Flexeril] 10 mg PO TID PRN #15 tab 05/27/20 traMADol HCl [Ultram] 50 mg PO Q6H PRN #12 tab 05/27/20 Allergies Allergy/AdvReac Type Severity Reaction Status Date / Time adhesive tape Allergy Rash/Hives Verified 05/27/20 10:33 latex Allergy Rash/Hives Verified 05/27/20 10:33 sulfamethoxazole Allergy Nausea & Verified 05/27/20 10:33 [From ] Vomiting & Diarrhea trimethoprim [From ] Allergy Nausea & Verified 05/27/20 10:33 Vomiting & Diarrhea Review of Systems ROS Statement: Those systems with pertinent positive or pertinent negative responses have been documented in the HPI. ROS Other: All systems not noted in ROS Statement are negative. Past Medical History Past Medical History: GERD/Reflux, Hyperlipidemia, Hypertension, Seizure Disorder Additional Past Medical History / Comment(s): brain cyst, hernia. LAST SEIZURE 2016-NO LONGER ON SEIZURE MEDS History of Any Multi-Drug Resistant Organisms: None Reported Past Surgical History: Section, Tonsillectomy Additional Past Surgical History / Comment(s): C-SECT-X 2 Past Anesthesia/Blood Transfusion Reactions: No Reported Reaction Past Psychological History: Anxiety, Depression Smoking Status: Current every day smoker Past Alcohol Use History: None Reported Past Drug Use History: None Reported - Past Family History Mother Family Medical History: No Reported History General Exam Limitations: no limitations General appearance: alert, in no apparent distress, obese Head exam: Present: atraumatic, normocephalic, normal inspection Eye exam: Present: normal appearance, PERRL, EOMI Pupils: Present: normal accommodation ENT exam: Present: normal exam, normal oropharynx, mucous membranes moist Neck exam: Present: normal inspection, tenderness (Bilateral paraspinal tenderness along the cervical spine particularly radiating along the right trapezius to the right shoulder.). Absent: meningismus, full ROM (Limited range of motion with right rotation), lymphadenopathy, thyromegaly Respiratory exam: Present: normal lung sounds bilaterally. Absent: respiratory distress, wheezes, rales Cardiovascular Exam: Present: regular rate, normal rhythm, normal heart sounds Extremities exam: Present: normal inspection, tenderness (Tenderness along the right shoulder), normal capillary refill, other (+2 ulnar and radial pulses bilateral. Sensation intact to proprioception and pain in the right upper external.). Absent: full ROM (Limited range of motion with abduction above 90.), pedal edema, joint swelling, calf tenderness Back exam: Present: normal inspection, full ROM. Absent: tenderness, CVA tenderness (R), CVA tenderness (L) Neurological exam: Present: alert, oriented X3, normal gait Psychiatric exam: Present: normal affect, normal mood Skin exam: Present: warm, dry, intact, normal color Course Vital Signs 05/27/20 05/27/20 10:31 12:00 Temperature 97.8 F 97.8 F Pulse Rate 82 76 Respiratory 16 16 Rate Blood Pressure 116/67 113/61 O2 Sat by Pulse 98 98 Oximetry Medical Decision Making - Medical Decision Making Patient is a 35-year-old female presenting to the emergency department with chief complaint of neck and shoulder pain. On physical examination, patient has paraspinal tenderness along the right cervical spine radiating along to the right trapezius and shoulder. Does have limited range of motion above 90 with abduction in the right upper extremity. Some paresthesias going down to her right arm. No such symptoms in her right lower extremity. 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 X-ray of the cervical spine reveals mild to moderate C5 to C6 spondylosis without acute osseous abnormality. I suspect the patient has developed cervical strain the neck which is causing her to have symptoms along the right trapezius and shoulder. Patient was given Toradol and Flexeril. A reevaluation patient reports improvement in his symptoms. Patient also will be discharged with tramadol until she is able to see an blasting entry specialist. She does not have any headaches, visual changes, chest pain or shortness of breath. Strict return parameters were thoroughly discussed patient is understanding and agreeable. Case discussed with physician. Disposition Clinical Impression: Strain of neck muscle Disposition: HOME SELF-CARE Condition: Stable Instructions (If sedation given, give patient instructions): Cervical Strain (ED) Additional Instructions: Alternate between Tylenol and Motrin for pain control. Apply warm compresses to the neck region. Try sleeping on a flatbed without any pillows. Take prescribed medication as directed. Prescriptions: Cyclobenzaprine [Flexeril] 10 mg PO TID PRN #15 tab PRN Reason: Muscle Spasm traMADol HCl [Ultram] 50 mg PO Q6H PRN #12 tab PRN Reason: Pain Is patient prescribed a controlled substance at d/c from ED?: No Referrals: Héctor Darnell MD [Primary Care Provider] - 1-2 days Time of Disposition: 11:40
--- NOTE | 2020-05-27 11:16 | XR ---
EXAMINATION TYPE: XR cervical spine comp DATE OF EXAM: 05/27/2020 TECHNIQUE: Frontal, lateral, oblique, swimmers, and open mouth view of the cervical spine are obtaine d. HISTORY: cervical strain, pain radiating along r trap. COMPARISON: None FINDINGS: The cervical spine is visualized in its entirety from C1 thru the top of T1 level, it is s atisfactory in alignment without evidence of acute fracture or dislocation. The pre-vertebral soft t issue appears within normal limits. The C1-C2 articulation is within normal limits on the open mouth view. There is [id number] narrowing at C5-C6 with associated foramina narrowing on the obliqu e views. The oblique images are otherwise within normal limits. IMPRESSION: Mild to moderate C5-C6 spondylosis without acute osseous abnormality.
[2020-05-27] MEDS ORDERED: traMADol 50 MG TAB PO STA (11:48)
[2020-05-27 12:01] VITALS: BP 113/61; PULSE 76
== END 2020-05-27 12:01 | disposition home or self-care (01) ==
LOC: EC 10:17
DX: S16.1XXA Strain of muscle, fascia and tendon at neck level, initial encounter (principal); M47.812 Spondylosis without myelopathy or radiculopathy, cervical region; I10 Essential (primary) hypertension; E78.5 Hyperlipidemia, unspecified; K21.9 Gastro-esophageal reflux disease without esophagitis; F41.9 Anxiety disorder, unspecified; F32.9 Major depressive disorder, single episode, unspecified; F17.200 Nicotine dependence, unspecified, uncomplicated; Z79.899 Other long term (current) drug therapy; Z88.1 Allergy status to other antibiotic agents; Z88.2 Allergy status to sulfonamides; Z91.048 Other nonmedicinal substance allergy status; Z91.040 Latex allergy status; X50.0XXA Overexertion from strenuous movement or load, initial encounter
CPT/HCPCS: 72050; 99283; 96372; J1885

== ENCOUNTER 2020-08-31 12:24 | Emergency (ER) | payer OTHER ==
[2020-08-31] MEDS ORDERED: ACET/COD 300 MG/30 MG STARTER PACK 6 TAB BTL PO STA (12:41)
[2020-08-31] MEDS ORDERED: ONDANSETRON 4 MG ODT STARTER PACK 2 TAB BTL PO STA (12:41)
[2020-08-31] MEDS ORDERED: BUPIVACAIN-EPI 0.5%-1:200,000 30 ML VIAL SQ STA (12:43)
--- NOTE | 2020-08-31 12:56 | ED ---
ENT HPI - General Chief complaint: Dental/Oral Stated complaint: dental pain Time Seen by Provider: 08/31/20 12:30 Source: patient, RN notes reviewed Mode of arrival: ambulatory Limitations: no limitations - History of Present Illness Initial comments: This a 35-year-old female presents emergency Department chief complaint severe left lower dental pain. Patient states she is 2/10 been broken off states that it has become very painful. She is unable to get into her dentist. He states is mild swelling in the left lower jawline notably swollen emergency breathingnegative fevers or chills. Patient states she's been taking Motrin with minimal relief of symptoms. - Related Data Home Medications Medication Instructions Recorded Confirmed ALPRAZolam [Xanax] 0.5 mg PO Q8HR PRN 12/14/15 05/23/19 Losartan [Cozaar] 25 mg PO DAILY 12/14/15 05/23/19 Atorvastatin [Lipitor] 20 mg PO HS 05/17/19 05/23/19 Hydrochlorothiazide 12.5 mg PO DAILY 05/17/19 05/23/19 [hydroCHLOROthiazide] Sertraline [Zoloft] 100 mg PO HS 05/17/19 05/23/19 raNITIdine HCL [Ranitidine HCl] 300 mg PO HS 05/17/19 05/23/19 Previous Rx's Medication Instructions Recorded HYDROcodone/APAP 7.5-325MG [[place] 1 each PO Q6H PRN #12 tab 05/24/19 7.5-325] Ibuprofen [Motrin] 600 mg PO Q6HR PRN #30 tab 05/24/19 Azithromycin [Zithromax Z-pack] 0 mg PO DIRECTED #6 tab 06/26/19 Cyclobenzaprine [Flexeril] 10 mg PO TID PRN #15 tab 05/27/20 traMADol HCl [Ultram] 50 mg PO Q6H PRN #12 tab 05/27/20 Penicillin V Potassium [Pen Vee K] 500 mg PO QID #40 tablet 08/31/20 Allergies Allergy/AdvReac Type Severity Reaction Status Date / Time adhesive tape Allergy Rash/Hives Verified 08/31/20 13:30 clindamycin Allergy Nausea & Verified 08/31/20 13:30 Vomiting & Diarrhea latex Allergy Rash/Hives Verified 08/31/20 13:30 sulfamethoxazole Allergy Nausea & Verified 08/31/20 13:30 [From ] Vomiting & Diarrhea trimethoprim [From ] Allergy Nausea & Verified 08/31/20 13:30 Vomiting & Diarrhea Review of Systems ROS Statement: Those systems with pertinent positive or pertinent negative responses have been documented in the HPI. ROS Other: All systems not noted in ROS Statement are negative. Past Medical History Past Medical History: GERD/Reflux, Hyperlipidemia, Hypertension, Seizure Disorder Additional Past Medical History / Comment(s): brain cyst, hernia. LAST SEIZURE 2016-NO LONGER ON SEIZURE MEDS History of Any Multi-Drug Resistant Organisms: None Reported Past Surgical History: Section, Tonsillectomy Additional Past Surgical History / Comment(s): C-SECT-X 2 Past Anesthesia/Blood Transfusion Reactions: No Reported Reaction Past Psychological History: Anxiety, Depression Smoking Status: Current every day smoker Past Alcohol Use History: None Reported Past Drug Use History: None Reported - Past Family History Mother Family Medical History: No Reported History General Exam Limitations: no limitations General appearance: alert, in no apparent distress Head exam: Present: atraumatic, normocephalic, normal inspection Eye exam: Present: normal appearance, PERRL, EOMI. Absent: scleral icterus, conjunctival injection, periorbital swelling ENT exam: Present: mucous membranes moist. Absent: normal exam, normal oropharynx (Dental fracture, multiple dental caries noted patient has no drainable abscess. Patient has some mild left mandibular swelling) Neck exam: Present: normal inspection, full ROM. Absent: tenderness, meningi smus, lymphadenopathy Respiratory exam: Present: normal lung sounds bilaterally. Absent: respiratory distress, wheezes, rales, rhonchi, stridor Cardiovascular Exam: Present: regular rate, normal rhythm, normal heart sounds. Absent: systolic murmur, diastolic murmur, rubs, gallop, clicks Course Vital Signs 08/31/20 12:27 Temperature 98.4 F Pulse Rate 101 H Respiratory 20 Rate Blood Pressure 156/87 O2 Sat by Pulse 97 Oximetry Procedures - Nerve Block Consent Obtained: verbal consent Local Anesthetic Used: Marcaine 0.5% Amount of anesthesia used: 2 Side: left Intraoral Nerve Block: inferior alveolar Procedure Successful: Yes Patient Tolerated Procedure: well, no complications Medical Decision Making - Medical Decision Making 35-year-old presented for dental pain patient was given a dental block. Patient was discharged on pain medication patient was also discharged on antibiotics with follow-up. Return parameters were discussed. Disposition Clinical Impression: Fracture of tooth, Toothache, Dental infection Disposition: HOME SELF-CARE Condition: Stable Instructions (If sedation given, give patient instructions): Toothache (ED) Additional Instructions: Please return to the Emergency Department if symptoms worsen or any other concerns. Prescriptions: Penicillin V Potassium [Pen Vee K] 500 mg PO QID #40 tablet Is patient prescribed a controlled substance at d/c from ED?: No Referrals: Héctor Darnell MD [Primary Care Provider] - 1-2 days Time of Disposition: 13:31
[2020-08-31] MEDS ORDERED: BUPIVACAINE (PF) 0.5% 30 ML VIAL SQ STA (13:00)
[2020-08-31 13:34] VITALS: BP 118/74; PULSE 82; RESP 18; TEMP 97.6
== END 2020-08-31 13:40 | disposition home or self-care (01) ==
LOC: EC 12:24
DX: S02.5XXA Fracture of tooth (traumatic), initial encounter for closed fracture (principal); K04.7 Periapical abscess without sinus; K02.9 Dental caries, unspecified; K21.9 Gastro-esophageal reflux disease without esophagitis; E78.5 Hyperlipidemia, unspecified; I10 Essential (primary) hypertension; G40.909 Epilepsy, unspecified, not intractable, without status epilepticus; F41.9 Anxiety disorder, unspecified; F32.9 Major depressive disorder, single episode, unspecified; F17.200 Nicotine dependence, unspecified, uncomplicated; Z79.899 Other long term (current) drug therapy; Z90.89 Acquired absence of other organs; Z88.1 Allergy status to other antibiotic agents; Z88.2 Allergy status to sulfonamides; Z91.040 Latex allergy status; Z91.048 Other nonmedicinal substance allergy status; X58.XXXA Exposure to other specified factors, initial encounter
CPT/HCPCS: 99282; 64400; S0119

== ENCOUNTER → 2021-07-26 | Outpatient (CLI) | payer OTHER ==
[~2021-07-26] MED LIST changes: +CASIRIVIMAB (REGN10933) (EUA) 600 MG, IMDEVIMAB (REGN10987) (EUA) 600 MG in SODIUM CHLO... IVPB NR; -DEXAMETHASONE SOD PHOSPHATE 10 MG/ML 1 ML VIAL IV ONE; -MIDAZOLAM 2 MG/2 ML VIAL IV PRN; +SODIUM CHLORIDE 0.9% 50 ML IVPB NR; +SODIUM CHLORIDE 0.9% 500 ML 500 ML in EMPTY BAG 1 BAG IV PRN; -fentaNYL (PF) 50 MCG/ML 2 ML AMP IV PRN
[2021-07-26 13:30] VITALS: RESP 18; TEMP 97.1
[2021-07-26 14:33] VITALS: BP 114/68; PULSE 74
== END | disposition home or self-care (01) ==
LOC: PROCWHC3 13:00
PROVIDERS: ATTEND Nurse Practitioner Adult Health
DX: U07.1 COVID-19 (principal)
CPT/HCPCS: 96360; Q0244; M0243

== ENCOUNTER → 2021-11-29 | Outpatient (CLI) | payer OTHER ==
--- NOTE | 2021-11-30 01:44 | MR ---
EXAMINATION TYPE: MR ankle LT wo con DATE OF EXAM: 11/29/2021 COMPARISON: None HISTORY: Left ankle pain, swelling, and limited movement for months. Heel bone spurs. Multiplanar multiecho imaging of the left ankle without contrast. The Achilles tendon is intact. Plantar fascia appears intact. Ankle mortise is anatomic. Collateral l igaments are intact. There is fluid around the lateral flexor tendons of the foot. There is small ank le joint effusion. There is no evidence of bony destructive process. No fracture seen. Joint spaces are fairly normal. T here is very slight increased patchy signal in the cuboidal bone. IMPRESSION: There is mild ankle joint effusion. There is moderate fluid around the peroneal tendon and is consist ent with tenosynovitis. No tendon tear. Slight increased signal in the cuboidal bone consistent with a mild bone bruise.
== END | disposition home or self-care (01) ==
LOC: RADMRIMAIN 19:35
PROVIDERS: ATTEND Podiatrist Foot & Ankle Surgery
DX: M25.472 Effusion, left ankle (principal); M65.872 Other synovitis and tenosynovitis, left ankle and foot; S90.02XA Contusion of left ankle, initial encounter; X58.XXXA Exposure to other specified factors, initial encounter

== ENCOUNTER → 2022-09-10 | Outpatient (CLI) | payer OTHER ==
[2022-09-10 14:52] LABS: African American GFR (CKD) >90 (>60 ml/min/1.73 sqM); Blood Urea Nitrogen 12 mg/dL (7-17); Non-African American GFR(CKD) 88 (>60 ml/min/1.73 sqM)
--- NOTE | 2022-09-10 17:57 | CT ---
EXAMINATION TYPE: CT urogram wo/w con DATE OF EXAM: 09/10/2022 COMPARISON: None INDICATION: hematuria and kidney infections/ with fluid. DLP: 3963 mGycm, Automated exposure control for dose reduction was used. CONTRAST: 100 mL of Isovue 300. Study performed without Oral Contrast TECHNIQUE: Axial images were obtained from above the diaphragm to the pubic rami in the axial plane a t 5 mm thick sections. Reconstructed images are reviewed on the computer in the coronal plane. FINDINGS: Limited CT sections are obtained the lung bases. The lung bases are clear. CT ABDOMEN: There is an anterior abdominal wall hernia with an opening 2.8 cm in the periumbilical re gion. Liver: Normal Spleen: Normal Pancreas: Normal Adrenal glands: Left adrenal gland is thickened 1.6 cm. Right adrenal gland appears normal. Gallbladder: Normal Kidneys: No masses are evident. No hydronephrosis is present. There is a 1.5 cm cyst in the mid pos terior lateral left kidney. Three-D reconstructed images are reviewed on the computer. Renal collecting system and proximal infun dibula and renal pelves appear normal. Ureters are not demonstrated to the urinary bladder. There is some filling of the urinary bladder with contrast. Aorta: Vascular calcification is within the aorta. Inferior vena cava: Normal. CT PELVIS: Loops of bowel within the abdomen and pelvis are normal. Fecal debris is within the ascending colon. There are loops of bowel which are incompletely distended or lack oral contrast limiting their anjali luation. Appendix: Normal as visualized. Urinary bladder: Normal. Genitourinary structures: Uterus is not identified. May be follicles on what appears to be the right ovary. Left ovary is not clearly identified. Osseous structures: No suspicious lytic or sclerotic lesions. IMPRESSIONS: 1. Somewhat limited CT urogram. The proximal renal collecting system and proximal one half of the ur eters appear normal. The distal ureters however are not identified. 2. Simple appearing left renal cyst. 3. Mild thickening of the left adrenal gland.
== END | disposition home or self-care (01) ==
LOC: RADCTMAIN 14:07
PROVIDERS: ATTEND Urology
DX: E27.8 Other specified disorders of adrenal gland (principal); N28.1 Cyst of kidney, acquired; R31.1 Benign essential microscopic hematuria
CPT/HCPCS: 82565; 84520; 74178; 36415; 74400; Q9967

== ENCOUNTER → 2023-01-27 | Outpatient (CLI) | payer OTHER ==
[2023-01-27 12:52] LABS: Partial Thromboplastin Time 25.1 sec (22.0-30.0); Prothrombin Time 10.5 sec (9.0-12.0)
[2023-01-27 15:39] LABS: ALT 13 U/L (8-44); AST 13 U/L (13-35); Albumin 4.3 d/dL (3.8-4.9); Albumin/Globulin Ratio 2.26 Ratio (1.60-3.17); Alkaline Phosphatase 71 U/L (41-126); BUN/Creat Ratio 14.44 Ratio (12.00-20.00); Calcium 9.2 mg/dL (8.7-10.3); Carbon Dioxide 23.1 mmol/L (21.6-31.8); Chloride 111 mmol/L (96-109); Globulin 1.9 d/dL (1.6-3.3); Glucose 102 mg/dL (70-110); Sodium 143 mmol/L (135-145); Total Bilirubin 0.3 mg/dL (0.3-1.2); Total Protein 6.2 d/dL (6.2-8.2)
[2023-01-27 15:58] LABS: Basophils # (A) 0.05 X 10*3/uL (0.00-0.10); Basophils % (A) 0.7 %; Eosinophils # (A) 0.08 X 10*3/uL (0.04-0.35); Eosinophils % (A) 1.1 %; HCT 42.2 % (37.2-46.3); Lymphocytes # (A) 2.21 X 10*3/uL (0.90-5.00); Lymphocytes % (A) 30.2 %; MCH 32.3 pg (27.0-32.0); MCHC 33.2 d/dL (32.0-37.0); MCV 97.5 FL (80.0-97.0); Mean Platelet Volume 10.7 FL (9.5-12.2); Monocytes # (A) 0.33 X 10*3/uL (0.20-1.00); Monocytes % (A) 4.5 %; NRBC Per 100 WBC 0 X 10*3/uL (0.00-0.01); Neutrophils # (A) 4.64 X 10*3/uL (1.80-7.70); Neutrophils % (A) 63.4 %; Platelet Count 180 X 10*3/uL (140-440); RBC 4.33 X 10*6/uL (4.10-5.20); RDW 11.7 % (11.5-14.5); WBC 7.32 X 10*3/uL (4.50-10.00)
[2023-01-27 20:37] LABS: Appearance,Urine Cloudy (Clear); Bilirubin,Urine Negative (Negative); Blood,Urine Negative (Negative); Color,Urine Dark Yellow (Yellow); Ketones,Urine Negative (Negative); Nitrite,Urine Negative (Negative); PH, Urine 6.5; Specific Gravity,Urine 1.024 (1.001-1.030)
== END | disposition home or self-care (01) ==
LOC: LABWHC1 11:29
PROVIDERS: ATTEND Neurological Surgery
DX: Z01.812 Encounter for preprocedural laboratory examination (principal)
CPT/HCPCS: 36415; 80053; 81001; 83036; 85025; 85610; 85730; 87086

== ENCOUNTER 2024-04-16 22:07 | Emergency (ER) | payer OTHER ==
[2024-04-16 22:28] VITALS: BP 140/77; PULSE 87; RESP 18; TEMP 97.1
--- NOTE | 2024-04-16 22:49 | ED ---
Seizure HPI - General Chief Complaint: Seizure Stated Complaint: Seizure Time Seen by Provider: 04/16/24 22:16 Source: patient, EMS Mode of arrival: EMS Limitations: no limitations - History of Present Illness Initial Comments: This patient is a 38-year-old woman who states she has history of epilepsy, and is here to have evaluation after she had a seizure at home. The patient states that she is compliant with her medications including Briviact and Depakote. She denies any injury related to the seizure, but states that she does have now the worst headache of her life. She states pain is occipital. She has not noted any associated neurologic symptoms. No fever. No neck stiffness. In addition, patient complains of having some residual cough. She states that she had been treated with doxycycline and prednisone over the past 6 days related to pneumonia that she was diagnosed with at another facility. MD Complaint: seizure -: minutes(s) Description of Episode: loss of consciousness, tonic-clonic movement Seizure History: known seizure disorder Place: home Possible Precipitating Event: none Associated Symptoms: denies other symptoms Treatments Prior to Arrival: none - Related Data Home Medications Medication Instructions Recorded Confirmed Atorvastatin [Lipitor] 20 mg PO DAILY 05/17/19 07/26/21 Sertraline [Zoloft] 100 mg PO DAILY 05/17/19 07/26/21 hydroCHLOROthiazide 12.5 mg PO DAILY 05/17/19 07/26/21 ALPRAZolam [Xanax] 1 mg PO TID PRN 08/31/20 07/26/21 Butalb/APAP/Caff 50-325-40Mg 1 tab PO Q8H PRN 08/31/20 07/26/21 [Fioricet 50-325-40] Ibuprofen [Motrin] 800 mg PO Q8H PRN 08/31/20 07/26/21 Losartan Potassium 100 mg PO DAILY 08/31/20 07/26/21 Omeprazole 40 mg PO DAILY PRN 08/31/20 07/26/21 Previous Rx's Medication Instructions Recorded Penicillin V Potassium [Pen Vee K] 500 mg PO QID #40 tablet 08/31/20 Allergies Allergy/AdvReac Type Severity Reaction Status Date / Time adhesive tape Allergy Rash/Hives Verified 04/16/24 22:28 clindamycin Allergy Nausea & Verified 04/16/24 22:28 Vomiting & Diarrhea latex Allergy Rash/Hives Verified 04/16/24 22:28 sulfamethoxazole Allergy Nausea & Verified 04/16/24 22:28 [From ] Vomiting & Diarrhea trimethoprim [From ] Allergy Nausea & Verified 04/16/24 22:28 Vomiting & Diarrhea Review of Systems ROS Statement: Those systems with pertinent positive or pertinent negative responses have been documented in the HPI. ROS Other: All systems not noted in ROS Statement are negative. Constitutional: Denies: fever, chills, weakness Eyes: Denies: eye pain, vision change ENT: Denies: ear pain, hearing loss Respiratory: Reports: cough. Denies: dyspnea, wheezes, hemoptysis Cardiovascular: Denies: chest pain, palpitations, edema Gastrointestinal: Denies: abdominal pain, nausea, vomiting, diarrhea Genitourinary: Denies: dysuria, hematuria Musculoskeletal: Denies: back pain Skin: Denies: rash Neurological: Reports: headache. Denies: weakness, numbness, paresthesias, confusion Past Medical History Past Medical History: GERD/Reflux, Hyperlipidemia, Hypertension, Seizure Disorder Additional Past Medical History / Comment(s): brain cyst, hernia. LAST SEIZURE 2016-NO LONGER ON SEIZURE MEDS History of Any Multi-Drug Resistant Organisms: None Reported Past Surgical History: Section, Tonsillectomy Additional Past Surgical History / Comment(s): C-SECT-X 2, VNS (placed 2022) Past Anesthesia/Blood Transfusion Reactions: No Reported Reaction Past Psychological History: Anxiety, Depression Smoking Status: Current every day smoker Past Alcohol Use History: None Reported Past Drug Use History: None Reported - Past Family History Mother Family Medical History: No Reported History General Exam Limitations: no limitations General appearance: alert, in no apparent distress Head exam: Present: atraumatic, normocephalic Eye exam: Present: normal appearance, PERRL, EOMI. Absent: scleral icterus, conjunctival injection, nystagmus ENT exam: Present: normal oropharynx Neck exam: Present: normal inspection, full ROM. Absent: tenderness, meningismus Respiratory exam: Present: normal lung sounds bilaterally. Absent: respiratory distress, wheezes, rales, rhonchi, stridor, accessory muscle use Cardiovascular Exam: Present: regular rate, normal rhythm, normal heart sounds. Absent: systolic murmur, diastolic murmur, rubs, gallop GI/Abdominal exam: Present: soft. Absent: distended, tenderness, guarding, rebound, rigid, mass Extremities exam: Present: normal inspection, normal capillary refill. Absent: pedal edema, calf tenderness Back exam: Present: normal inspection. Absent: CVA tenderness (R), CVA tenderness (L) Neurological exam: Present: alert, oriented X3, CN II-XII intact. Absent: motor sensory deficit Skin exam: Present: warm, dry, intact, normal color. Absent: rash Course Vital Signs 04/16/24 22:18 Temperature 97.1 F L Pulse Rate 87 Respiratory 18 Rate Blood Pressure 140/77 O2 Sat by Pulse 97 Oximetry Medical Decision Making - Medical Decision Making The patient had chest x-ray that I interpreted as negative for acute infiltrate, pneumothorax, congestive heart failure The patient had CT of the brain that I interpreted as negative for acute bony injury, intracranial hemorrhage or mass effect Was pt. sent in by a medical professional or institution (, PA, RADIOACTIVITY TECHNICIAN, urgent care, hospital, or correction...) When possible be specific @ -[No] Did you speak to anyone other than the patient for history (EMS, parent, family, police, friend...)? What history was obtained from this source @ -[No] Did you review nursing and triage notes (agree or disagree)? Why? @ -[I reviewed and agree with nursing and triage notes] Were old charts reviewed (outside hosp., previous admission, EMS record, old EKG, old radiological studies, urgent care reports/EKG's, correction records)? Report findings @ -[No old charts were reviewed] Differential Diagnosis (chest pain, altered mental status, abdominal pain women, abdominal pain men, vaginal bleeding, weakness, fever, dyspnea, syncope, headache, dizziness, GI bleed, back pain, seizure, CVA, palpatations, mental health, musculoskeletal)? @ -[Differential Seizure: Recurrent seizure disorder, febrile seizure, alcohol withdrawal, stimulants, meningitis, encephalitis, intercranial hemorrhage, intracranial tumor, stroke, eclampsia, thyrotoxicosis, hypocalcemia, hyponatremia, hypernatremia, hypomagnesemia, psychogenic, this is not meant to be an all-inclusive list. EKG interpreted by me (3pts min.). @ -[I interpreted as above] X-rays interpreted by me (1pt min.). @ -[I interpreted as above CT interpreted by me (1pt min.). @ -[I interpreted as above U/S interpreted by me (1pt. min.). @ -[None done] What testing was considered but not performed or refused? (CT, X-rays, U/S, labs)? Why? @ -[None] What meds were considered but not given or refused? Why? @ -[None] Did you discuss the management of the patient with other professionals (professionals i.e. , PA, RADIOACTIVITY TECHNICIAN, lab, RT, psych nurse, social media campaign manager, oral and maxillofacial surgeon, teacher, chief executive officer, case loader operator)? Give summary @ -[No] Was smoking cessation discussed for >3mins.? @ -[No] Was critical care preformed (if so, how long)? @ -[No] Were there social determinants of health that impacted care today? How? (Homelessness, low income, unemployed, alcoholism, drug addiction, transportation, low edu. Level, literacy, decrease access to med. care, residential, rehab)? @ -[No] Was there de-escalation of care discussed even if they declined (Discuss DNR or withdrawal of care, Hospice)? DNR status @ -[No] What co-morbidities impacted this encounter? (DM, HTN, Smoking, COPD, CAD, Cancer, CVA, ARF, Chemo, Hep., AIDS, mental health diagnosis, sleep apnea, morbid obesity)? @ -[None] Was patient admitted / discharged? Hospital course, mention meds given and route, prescriptions, significant lab abnormalities, going to OR and other pertinent info. @ -[This patient is a 38-year-old woman who arrives here after having had what sounds like breakthrough seizure. The patient did also have associated worst headache of life. She had CT scan negative for subarachnoid hemorrhage. The patient has returned to baseline. She will follow-up with her neurologist. Discussed appropriate follow-up as well as return parameters Undiagnosed new problem with uncertain prognosis? @ -[No] Drug Therapy requiring intensive monitoring for toxicity (Heparin, Nitro, Insulin, Cardizem)? @ -[No] Were any procedures done? @ -[No] Diagnosis/symptom? @ -[Acute generalized tonic-clonic seizure Acute headache Acute, or Chronic, or Acute on Chronic? @ -[Acute Uncomplicated (without systemic symptoms) or Complicated (systemic symptoms)? @ -[Uncomplicated Side effects of treatment? @ -[No] Exacerbation, Progression, or Severe Exacerbation? @ -[No] Poses a threat to life or bodily function? How? (Chest pain, [place], HI, pneumonia, PE, COPD, DKA, ARF, appy, cholecystitis, CVA, Diverticulitis, Homicidal, Suicidal, threat to staff... and all critical care pts) @ -[No] - Lab Data Result diagrams: 04/16/24 22:44 04/16/24 22:44 Lab Results 04/16/24 04/16/24 Range/Units 22:44 22:44 WBC 8.2 (3.8-10.6) k/uL RBC 4.28 (3.80-5.40) m/uL Hgb 14.1 (11.4-16.0) gm/dL Hct 42.0 (34.0-46.0) % MCV 98.0 (80.0-100.0) fL MCH 32.9 (25.0-35.0) pg MCHC 33.5 (31.0-37.0) g/dL RDW 12.1 (11.5-15.5) % Plt Count 145 L (150-450) k/uL MPV 7.6 Neutrophils % 64 % Lymphocytes % 29 % Monocytes % 4 % Eosinophils % 1 % Basophils % 1 % Neutrophils # 5.2 (1.3-7.7) k/uL Lymphocytes # 2.4 (1.0-4.8) k/uL Monocytes # 0.3 (0-1.0) k/uL Eosinophils # 0.1 (0-0.7) k/uL Basophils # 0.1 (0-0.2) k/uL Sodium 139 (137-145) mmol/L Potassium 3.2 L (3.5-5.1) mmol/L Chloride 113 H (98-107) mmol/L Carbon Dioxide 21 L (22-30) mmol/L Anion Gap 5 mmol/L BUN 16 (7-17) mg/dL Creatinine 0.88 (0.52-1.04) mg/dL Est GFR (CKD-EPI)AfAm >90 (>60 ml/min/1.73 sqM) Est GFR (CKD-EPI)NonAf 84 (>60 ml/min/1.73 sqM) Glucose 106 H (74-99) mg/dL Calcium 8.8 (8.4-10.2) mg/dL Magnesium 1.9 (1.6-2.3) mg/dL Total Bilirubin 0.4 (0.2-1.3) mg/dL AST 19 (14-36) U/L ALT 13 (4-34) U/L Alkaline Phosphatase 65 (38-126) U/L Total Protein 6.2 L (6.3-8.2) g/dL Albumin 3.9 (3.5-5.0) g/dL Serum Alcohol <10 mg/dL - EKG Data -: EKG Interpreted by [facility] EKG shows normal: sinus rhythm, axis (Normal), intervals (Normal), QRS complexes (Normal) Rate: normal (Rate 81 bpm) Interpretation: nonspecific ST-T wave changes Disposition Clinical Impression: Generalized seizure Disposition: HOME SELF-CARE Condition: Good Instructions (If sedation given, give patient instructions): Seizure/Epilepsy Discharge Instructions & Follow-Up Is patient prescribed a controlled substance at d/c from ED?: No Referrals: Antonio Bernal MD [Primary Care Provider] - 1-2 days Richie Rodriguez MD [Medical Doctor] - 1-2 days
--- NOTE | 2024-04-16 23:10 | CT ---
EXAMINATION TYPE: CT brain wo con DATE OF EXAM: 04/16/2024 COMPARISON: Prior CT September 17, 2011 HISTORY: Called EMS for head pain, then had a seizure (per family lasted 2 minutes) Recent dx of PNA at [facility] [id number] CT DLP: 1184.2 mGycm. Automated Exposure Control for Dose Reduction was Utilized. TECHNIQUE: CT scan of the head is performed without contrast. FINDINGS: There is no acute intracranial hemorrhage, mass effect, or midline shift identified. The ventricles and sulci are within normal limits in size. Zafar-white matter differentiation is maintain ed. Nasal septum is deviated to right of midline. The globes are intact and the visualized sinuses ar e clear. CSF prominence posterior aspect of the posterior fossa is unchanged from prior studies possi ble small arachnoid cyst. IMPRESSION: No acute intracranial hemorrhage or midline shift is seen.
[2024-04-16 23:12] LABS: Basophils # (A) 0.1 k/uL (0-0.2); Basophils % (A) 1 %; Eosinophils # (A) 0.1 k/uL (0-0.7); Eosinophils % (A) 1 %; HGB 14.1 gm/dL (11.4-16.0); Lymphocytes # (A) 2.4 k/uL (1.0-4.8); Lymphocytes % (A) 29 %; MCH 32.9 pg (25.0-35.0); MCHC 33.5 g/dL (31.0-37.0); Mean Platelet Volume 7.6; Monocytes # (A) 0.3 k/uL (0-1.0); Monocytes % (A) 4 %; Neutrophils # (A) 5.2 k/uL (1.3-7.7); Neutrophils % (A) 64 %; Platelet Count 145 k/uL (150-450); RBC 4.28 m/uL (3.80-5.40); RDW 12.1 % (11.5-15.5); WBC 8.2 k/uL (3.8-10.6)
[2024-04-16 23:17] LABS: ALT 13 U/L (4-34); AST 19 U/L (14-36); African American GFR (CKD) >90 (>60 ml/min/1.73 sqM); Albumin 3.9 g/dL (3.5-5.0); Alcohol <10 mg/dL; Alkaline Phosphatase 65 U/L (38-126); Anion Gap 5 mmol/L; Blood Urea Nitrogen 16 mg/dL (7-17); Calcium 8.8 mg/dL (8.4-10.2); Carbon Dioxide 21 mmol/L (22-30); Chloride 113 mmol/L (98-107); Glucose 106 mg/dL (74-99); Magnesium 1.9 mg/dL (1.6-2.3); Non-African American GFR(CKD) 84 (>60 ml/min/1.73 sqM); Potassium 3.2 mmol/L (3.5-5.1); Sodium 139 mmol/L (137-145); Total Bilirubin 0.4 mg/dL (0.2-1.3); Total Protein 6.2 g/dL (6.3-8.2)
--- NOTE | 2024-04-16 23:18 | XR ---
EXAMINATION TYPE: XR chest 2V DATE OF EXAM: 04/16/2024 COMPARISON: Prior chest x-ray June 26, 2019 HISTORY: Cough. TECHNIQUE: Frontal and lateral views of the chest are obtained. FINDINGS: There is no focal air space opacity, pleural effusion, or pneumothorax seen. Left chest w all neck stimulator device is present. The cardiac silhouette size is within normal limits. The oss eous structures are intact. IMPRESSION: No acute pulmonary infiltrate.
[2024-04-17] MEDS: POTASSIUM CHLORIDE ER 20 MEQ TAB.ER PO STA (00:25)
[2024-04-17] MEDS: IBUPROFEN 400 MG TAB PO STA (00:27)
[2024-04-17] MEDS: ACETAMINOPHEN TAB 325 MG TAB PO STA (00:29)
== END 2024-04-17 01:39 | disposition home or self-care (01) ==
LOC: EC 22:07
DX: G40.409 Other generalized epilepsy and epileptic syndromes, not intractable, without status epilepticus (principal); F17.200 Nicotine dependence, unspecified, uncomplicated; Z91.048 Other nonmedicinal substance allergy status; Z88.1 Allergy status to other antibiotic agents; Z91.040 Latex allergy status; Z88.2 Allergy status to sulfonamides
CPT/HCPCS: 36415; 70450; 71046; 80053; 80320; 83735; 85025; 93005; 99285

== ENCOUNTER → 2024-12-13 | Outpatient (CLI) | payer BC ==
--- NOTE | 2024-12-13 14:56 | US ---
EXAMINATION TYPE: US venous doppler duplex LE LT DATE OF EXAM: 12/13/2024 2:42 PM COMPARISON: NONE CLINICAL INDICATION: Female, 39 years old with history of M79.662 PAIN L LEG R22.42 SWELLING L LEG; l eft leg and knee pain/ swelling x 2 weeks, pt falls often with epilepsy condition, no hx of dvt, not on blood thinners, Pain TECHNIQUE: The lower extremity deep venous system is examined utilizing real time linear array sonog alen with graded compression, color doppler sonography, and spectral doppler. SIDE PERFORMED: Left FINDINGS: VESSELS IMAGED: Common Femoral Vein Deep Femoral Vein Greater Saphenous Vein * Femoral Vein Popliteal Vein Small Saphenous Vein * Proximal Calf Veins (* superficial vessels) Left Leg: appears negative for DVT, Color Doppler imaging shows patency of the vessels. Spectral wav eforms are within normal limits. IMPRESSION: No ultrasound evidence for deep venous thrombosis. [facility], , 12/13/2024 2:54 PM
== END | disposition home or self-care (01) ==
LOC: RADUSWWP 14:20
PROVIDERS: ATTEND Family Medicine
DX: M79.662 Pain in left lower leg (principal); R22.42 Localized swelling, mass and lump, left lower limb; G40.909 Epilepsy, unspecified, not intractable, without status epilepticus